=== PATIENT | female | born 1975 | race Caucasian/White ===

== ENCOUNTER 2024-07-29 11:52 | Emergency (ER) | payer OTHER ==
[~2024-07-29] VITALS: Ht 152.4 cm; Wt 72.6 kg
[2024-07-29 11:57] VITALS: O2SAT 100
[2024-07-29 12:07] VITALS: BP 148/75; PULSE 100; RESP 16; TEMP 98.3; O2SAT 99
[2024-07-29 14:45] LABS: HCG SCREEN NEGATIVE
== END 2024-07-29 17:23 | disposition home or self-care (01) ==
LOC: ER 11:52
DX: T17.228A Food in pharynx causing other injury, initial encounter (principal); X58.XXXA Exposure to other specified factors, initial encounter; Y93.89 Activity, other specified; Y92.89 Other specified places as the place of occurrence of the external cause; Y99.8 Other external cause status
CPT/HCPCS: 84703; 70490; 42809; 99284; Z7610; 40804